=== PATIENT | female | born 2000 | race African-American/Black ===

== ENCOUNTER 2024-10-07 21:00 | Emergency (ER) | payer OTHER ==
[~2024-10-07] VITALS: Ht 160 cm; Wt 54.4 kg
[2024-10-07] MEDS ORDERED: dexaMETHasone SOD PHOSPHATE 1 ML ONE (21:39)
[2024-10-07] MEDS ORDERED: ACETAMINOPHEN ES 500 MG TABLET ONE (21:40)
[2024-10-07] MEDS ORDERED: KETOROLAC TROMETHAMINE INJ 30 MG/ML VIAL ONE (21:40)
[2024-10-07] MEDS: dexaMETHasone SOD PHOSPHATE 10 MG/ML VIAL IM ONE (21:50)
[2024-10-07] MEDS: KETOROLAC TROMETHAMINE INJ 30 MG/ML VIAL IM ONE (21:51)
[2024-10-07] MEDS: ACETAMINOPHEN ES 500 MG TABLET PO ONE (21:51)
[2024-10-07] MEDS ORDERED: IBUP-1490 PO (23:04)
[2024-10-07] MEDS ORDERED: PENI500T PO (23:04)
[2024-10-07] MEDS ORDERED: ACET-2030 PO (23:07)
[2024-10-07] MEDS ORDERED: BENZ1LOZ58 PO (23:07)
[2024-10-07 23:27] VITALS: BP 118/77; TEMP 98.4; O2SAT 99
== END 2024-10-07 23:18 | disposition home or self-care (01) ==
LOC: ER 21:20
DX: J02.9 Acute pharyngitis, unspecified (principal)
CPT/HCPCS: 99284; 96372; J1885; J1100